=== PATIENT | female | born 1990 ===

== ENCOUNTER 2016-10-19 16:26 | Emergency (ER) | payer SELFPAY ==
[2016-10-19 16:26] VITALS: BMI 22.4
[2016-10-19 16:35] VITALS: TEMP 98.7; O2SAT 99
--- NOTE | 2016-10-19 16:52 | ED PDOC ---
Arrival/HPI - General Chief Complaint: Abdominal Pain Time Seen by Provider: 10/19/16 16:27 Historian: Patient - History of Present Illness Narrative History of Present Illness (Text): 10/19/16 16:51 Patient is a 26 year old female whose past medical history includes kidney stones who presents to the emergency department with bilateral flank pain, hematuria, and urinary frequency since this morning. Patient states this feels similar to previous kidney stones symptoms. Denies nausea or vomiting, vaginal bleeding or discharge, constipation or diarrhea. Time/Duration: 24 hours Symptom Onset: Sudden Symptom Course: Unchanged Modifying Factors (Text): None Past Medical History - Provider Review Nursing Documentation Reviewed: Yes - Past Medical History Past Medical History: No Previous - Cardiac Hx Cardiac Disorders: No - Pulmonary Hx Respiratory Disorders: No - Neurological Hx Neurological Disorder: No - HEENT Hx HEENT Disorder: No - Renal Hx Kidney Stones: Yes - Endocrine/Metabolic Hx Endocrine Disorders: No - Hematological/Oncological Hx Blood Disorders: No - Integumentary Hx Dermatological Disorder: No - Musculoskeletal/Rheumatological Hx Musculoskeletal Disorders: No - Gastrointestinal Hx Gastrointestinal Disorders: No - Genitourinary/Gynecological Hx Genitourinary Disorders: No - Psychiatric Hx Psychophysiologic Disorder: No Hx Substance Use: No - Past Surgical History Past Surgical History: No Previous - Surgical History Hx Orthopedic Surgery: Yes - Anesthesia Hx Anesthesia: No Hx Anesthesia Reactions: No Hx Malignant Hyperthermia: No - Suicidal Assessment Feels Threatened In Home Enviroment: No Family/Social History - Physician Review Nursing Documentation Reviewed: Yes Family/Social History: Unknown Family HX Smoking Status: Never Smoked Hx Alcohol Use: No Hx Substance Use: No Hx Substance Use Treatment: No Allergies/Home Meds Allergies/Adverse Reactions: Allergies No Known Allergies Allergy (Verified 10/07/15 12:32) Review of Systems - Review of Systems Constitutional: absent: Weight Change, Fevers, Night Sweats Eyes: absent: Vision Changes ENT: absent: Hearing Changes Respiratory: absent: SOB, Cough, Sputum, Wheezing Cardiovascular: absent: Chest Pain, Palpitations Gastrointestinal: Abdominal Pain. absent: Constipation, Diarrhea, Nausea, Vomiting Genitourinary Female: Dysuria, Frequency, Hematuria. absent: Urine Output Changes, Vaginal Bleeding, Vaginal Discharge Musculoskeletal: Back Pain, Other (Bilateral flank pain) Skin: absent: Rash Neurological: absent: Headache, Dizziness Endocrine: absent: Diaphoresis Psychiatric: absent: Depression Physical Exam Vital Signs Reviewed: Yes Vital Signs Temp Pulse Resp BP Pulse Ox 10/19/16 18:00 79 18 101/65 99 10/19/16 16:34 98.7 F 86 16 99/60 L 99 Temperature: Afebrile Blood Pressure: Normal Pulse: Regular Respiratory Rate: Normal Appearance: Positive for: Well-Appearing, Non-Toxic, Comfortable Pain Distress: None Mental Status: Positive for: Alert and Oriented X 3 - Systems Exam Head: Present: Atraumatic, Normocephalic Pupils: Present: PERRL Extroacular Muscles: Present: EOMI Conjunctiva: Present: Normal Mouth: Present: Moist Mucous Membranes Neck: Present: Normal Range of Motion Respiratory/Chest: Present: Clear to Auscultation, Good Air Exchange. No: Respiratory Distress, Accessory Muscle Use Cardiovascular: Present: Regular Rate and Rhythm, Normal S1, S2. No: Murmurs Abdomen: Present: Normal Bowel Sounds. No: Tenderness, Distention, Peritoneal Signs Back: No: CVA Tenderness, Midline Tenderness Upper Extremity: Present: Normal Inspection. No: Cyanosis, Edema Lower Extremity: Present: Normal Inspection. No: Edema Neurological: Present: GCS=15, CN II-XII Intact, Speech Normal Skin: Present: Warm, Dry, Normal Color. No: Rashes Psychiatric: Present: Alert, Oriented x 3, Normal Insight, Normal Concentration Medical Decision Making ED Course and Treatment: Impression: Patient is a 26 year old female whose past medical history includes kidney stones who presents to the emergency department with bilateral flank pain , dysuria, hematuria, and urinary frequency since this morning. Patient is well appearing and symptoms consistent with prior episodes of renal colic. Differential Diagnosis include but are not limited to: Likely renal colic, r/o , UTI Plan: -- Ultrasound -- Toradol -- Labs -- Reassess and disposition Prior Visits: Notes and results from previous visits were reviewed. Patient last seen in ED on Progress Notes: 10/19/16 17:03 Will get renal ultrasound to avoid radiation from CT due to patient's hx of renal stones, similar presentation, age 0510/19/16 18:06 Labs resulted and show normal WBC and normal chemistry (normal creatinine.). Patient is not . UA shows large blood, negative nitrates, trace leukocytes with few bacteria. Ucx sent PROCEDURE: Ultrasound of the Kidneys Coder : Rosa Cisneros MD IMPRESSION: Mid to lower pole sub cm nonobstructing calculi, largest within the midpole measuring approximately 8 mm. No obstructing calculus or hydronephrosis identified bilaterally. 10/19/16 18:49 Patient has no fever, is tolerating po and reports that her pain is resolved. Will dc with cipro and pain medication with urology f/u. 10/19/16 18:55 - Lab Interpretations Lab Results: 10/19/16 17:00 10/19/16 17:00 Lab Results 10/19/16 17:00: Sodium 141, Potassium 3.7, Chloride 104, Carbon Dioxide 27, Anion Gap 14, BUN 9, Creatinine 0.6, Est GFR ( Amer) > 60, Est GFR (Non- Af Amer) > 60, Random Glucose 90, Calcium 9.7, Total Bilirubin 0.4, AST 22, ALT 30, Alkaline Phosphatase 36 L, Total Protein 8.1, Albumin 4.6, Globulin 3.5, Albumin/Globulin Ratio 1.3 10/19/16 17:00: WBC 8.1, RBC 5.16, Hgb 13.9, Hct 40.2, MCV 77.9 L, MCH 26.9, MCHC 34.6, RDW 14.4, Plt Count 187, MPV 12.0 H, Gran % 71.4 H, Lymph % (Auto) 24.2, [place] % (Auto) 3.6, Eos % (Auto) 0.6 L, Baso % (Auto) 0.2, Gran # 5.75, Lymph # 2.0, [place] # 0.3, Eos # 0.1, Baso # 0.02 10/19/16 16:55: Urine Color Light yellow, Urine Appearance Sl cloudy, Urine pH 6.0, Ur Specific [place] 1.015, Urine Protein Negative, Urine Glucose (UA) Negative, Urine Ketones Negative, Urine Blood Large H, Urine Nitrate Negative, Urine Bilirubin Negative, Urine Urobilinogen 0.2, Ur Leukocyte Esterase Trace H , Urine RBC 25 - 30, Urine WBC 1 - 3, Ur Epithelial Cells 1 - 3, Urine Bacteria Few - RAD Interpretation Radiology Orders: 10/19/16 16:57 RENAL [US] Stat - Medication Orders Current Medication Orders: Discontinued Medications Ciprofloxacin (Cipro) 500 mg PO ONCE STA PRN Reason: Protocol Stop: 10/19/16 18:55 Ketorolac Tromethamine (Toradol) 30 mg IVP STAT STA Stop: 10/19/16 17:01 Last Admin: 10/19/16 17:30 Dose: 30 mg Re-Assess: KACI Pain Assessment Document 10/19/16 18:30 HI (Rec: 10/19/16 19:16 HI [id number]) Pain Reassessment Is this a pain reassessment? Yes Sleep Is patient sleeping during reassessment? No Presence of Pain Presence of Pain No - Scribe Statement The provider has reviewed the documentation as recorded by the Sharon Tucker Provider Scribe Attestation: All medical record entries made by the Sharon were at my direction and personally dictated by me. I have reviewed the chart and agree that the record accurately reflects my personal performance of the history, physical exam, medical decision making, and the department course for this patient. I have also personally directed, reviewed, and agree with the discharge instructions and disposition. Disposition/Present on Arrival - Present on Arrival Any Indicators Present on Arrival: No History of DVT/PE: No History of Uncontrolled Diabetes: No Urinary Catheter: No History of Decub. Ulcer: No History Surgical Site Infection Following: None - Disposition Have Diagnosis and Disposition been Completed?: Yes Diagnosis: Renal colic Disposition: HOME/ ROUTINE Disposition Time: 18:50 Patient Plan: Discharge Patient Problems: Current Active Problems Problem Status Onset Renal colic Acute Condition: GOOD Discharge Instructions (ExitCare): Renal Colic (ED) Print Language: CITIZEN OF [place] Additional Instructions: Follow up with PMD within 2 days. Follow-up with urology. Return to ED if condition worsens. Take full course of antibiotics. Prescriptions: Ciprofloxacin HCl [Cipro] 500 mg PO BID #14 tablet oxyCODONE/Acetaminophen [Percocet 5/325 mg Tab] 1 ea PO Q8 #10 tab Tamsulosin [Flomax] 0.4 mg PO DAILY #30 cap Referrals: [facility] [Primary Care Provider] - Follow up with primary Johnathon Rabago MD [Staff Provider] - Follow up with primary Forms: [employer] Visits Discharge (Ind[place]ian)
[2016-10-19 17:06] LABS: URINE BILIRUBIN NEGATIVE (NEGATIVE); URINE BLOOD LARGE (NEGATIVE); URINE GLUCOSE (UA) NEGATIVE (NEGATIVE); URINE KETONE NEGATIVE (NEGATIVE); URINE LEUKOCYTE ESTERASE TRACE Leu/uL (NEGATIVE); URINE PROTEIN NEGATIVE mg/dL (<30 mg/dL); URINE UROBILINOGEN 0.2 E.U./dL (<1 E.U./dL)
[2016-10-19 17:08] LABS: URINE COLOR LIGHT YELLOW (YELLOW)
[2016-10-19 17:13] LABS: URINE APPEARANCE SL CLOUDY (CLEAR); URINE RBC 25 - 30 /hpf (0-2)
[2016-10-19 17:14] LABS: URINE BACTERIA FEW (NEG)
[2016-10-19 17:40] LABS: ADD MANUAL DIFF? NO
[2016-10-19 17:46] LABS: BASO # 0.02 K/mm3 (0.0-2.0); BASO % 0.2 % (0.0-3.0); EOS # 0.1 (0.0-0.7); EOS % 0.6 % (1.5-5.0); GRAN # 5.75 (1.4-6.5); GRAN % 71.4 % (50.0-68.0); HEMATOCRIT 40.2 % (36.0-48.0); LYMPH % 24.2 % (22.0-35.0); MEAN CELL VOLUME 77.9 fL (80.0-105.0); MEAN CORPUSCULAR HEMOGLOBIN 26.9 pg (25.0-35.0); MEAN CORPUSCULAR HGB CONC 34.6 g/dl (31.0-37.0); MONO # 0.3 (0.1-0.6); MONO % 3.6 % (1.0-6.0); PLATELET COUNT 187 10^3/uL (120.0-450.0); RED CELL DISTRIBUTION WIDTH 14.4 % (11.5-14.5); WHITE BLOOD COUNT 8.1 10^3/ul (4.5-11.0)
[2016-10-19 17:55] LABS: ALB/GLOB RATIO 1.3 (1.1-1.8); ALKALINE PHOSPHATASE 36 U/L (38-133); ALT/SGPT 30 U/L (7-56); AST/SGOT 22 U/L (15-39); BILIRUBIN,TOTAL 0.4 mg/dL (0.2-1.3); BLOOD UREA NITROGEN 9 mg/dL (7-21); CALCIUM 9.7 mg/dL (8.4-10.5); CARBON DIOXIDE 27 mmol/L (21-33); CHLORIDE 104 mmol/L (95-110); GFR AFRICAN-AMERICAN > 60; GLUCOSE,RANDOM 90 mg/dL (70-110); POTASSIUM 3.7 mmol/L (3.6-5.0); SODIUM 141 mmol/L (132-148); TOTAL PROTEIN 8.1 g/dL (5.8-8.3)
--- NOTE | 2016-10-19 18:06 | US ---
PROCEDURE: Ultrasound of the Kidneys HISTORY: b/l flank pain with hematuria COMPARISON: CT of the abdomen and pelvis without contrast performed 10/07/15 TECHNIQUE: Sonogram of the kidneys. FINDINGS: RIGHT KIDNEY: Measures: 9.2 x 3.9 x 5.3 cm. Mid to lower pole sub cm nonobstructing calculi, largest within the midpole measuring approximately 8 mm. No hydronephrosis. LEFT KIDNEY: Measures: 12.0 x 5.1 x 4.5 cm. No obstructing calculi or hydronephrosis identified. OTHER FINDINGS: None. IMPRESSION: Mid to lower pole sub cm nonobstructing calculi, largest within the midpole measuring approximately 8 mm. No obstructing calculus or hydronephrosis identified bilaterally.
[2016-10-19 19:29] VITALS: BP 102/70; PULSE 72; RESP 16
== END 2016-10-19 19:23 | disposition home or self-care (01) ==
LOC: ED 16:26
DX: N20.0 Calculus of kidney (principal); Z87.442 Personal history of urinary calculi
CPT/HCPCS: 76770; 80053; 81001; 85025; 87086; 96374; 99284; J1885